=== PATIENT | male | born 1950 | race Caucasian/White ===

== ENCOUNTER → 2020-06-04 | Outpatient (CLI) | payer MEDICARE, OTHER ==
[~2020-06-04] MED LIST: AMLODIPINE BESY10 MG PO; FLONASE NASAL S16 GM NS; HCTZ W/SPIRONOL1 TAB PO; PRILOSEC 20MG20 MG PO; TOPROL XL100 MG PO; VYTORIN 10 MG-21 TAB PO
== END ==
LOC: ZCOL.LAB 17:00
DX: T81.89XA Other complications of procedures, not elsewhere classified, initial encounter (principal)

== ENCOUNTER → 2023-06-22 | Outpatient (CLI) | payer MEDICARE, BC ==
[~2023-06-22] MED LIST changes: +Iohexol 300 - 10 ML VIAL IV ONE; +Triamcinolone 40 MG/ML 1 ML VIAL IJ ONE
== END ==
LOC: COL.RAD 09:59
DX: M25.551 Pain in right hip (principal)
CPT/HCPCS: J0665; J3301; Q9967